=== PATIENT | male | born 1975 | race African-American/Black ===

== ENCOUNTER 2018-11-12 12:23 | Emergency (ER) | payer MEDICAID ==
[~2018-11-12] VITALS: Ht 175.3 cm; Wt 100.0 kg
--- NOTE | 2018-11-12 12:33 | NUR ---
Called for triage x2 no answer.
--- NOTE | 2018-11-12 12:41 | NUR ---
Third attempt to call for triage, no answer.
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
[2018-11-12 13:09] LABS: BASOPHILS # (AUTO) 0.05 x10^3/uL (0-0.1); BASOPHILS % (AUTO) 1 % (0-1); EOSINOPHILS # (AUTO) 0.11 x10^3/uL (0-0.4); EOSINOPHILS % (AUTO) 2 % (1-7); LYMPHOCYTES # (AUTO) 1.53 x10^3/uL (1-3.4); LYMPHOCYTES % (AUTO) 23 % (22-44); MD NO; MEAN CORPUSCULAR HEMOGLOBIN 31.5 pg (27.5-34.5); MEAN CORPUSCULAR HGB CONC 33.9 g/dL (33.2-36.2); MEAN CORPUSCULAR VOLUME 92.9 fL (81-97); MEAN PLATELET VOLUME 7.6 fL (7.4-10.4); MONOCYTES % (AUTO) 10 % (2-9); NEUTROPHILS # (AUTO) 4.37 x10^3/uL (1.8-6.8); NEUTROPHILS % (AUTO) 65 % (42-75); PLATELET COUNT 420 x10^3/uL (130-400); RED BLOOD COUNT 5.04 x10^6/uL (4.38-5.82); RED CELL DISTRIBUTION WIDTH 13.5 % (9.4-14.8)
[2018-11-12 13:19] LABS: ALBUMIN 3.5 g/dL (3.4-5.0); ANION GAP 7 mmol/L (5-15); CHLORIDE 107 mmol/L (98-107)
[2018-11-12 13:22] LABS: ALANINE AMINOTRANSFERASE 21 U/L (12-78); ALKALINE PHOSPHATASE 82 U/L (45-117); BILIRUBIN,TOTAL 0.3 mg/dL (0.2-1.0); TOTAL PROTEIN 7.7 g/dL (6.4-8.2)
[2018-11-12] MEDS ORDERED: OXYcodone/APAP 5/325MG TABLET ONE (13:47)
--- NOTE | 2018-11-12 13:50 | NUR ---
Pt medicated as per emar, labs complete. CT face pending.
[2018-11-12] MEDS ORDERED: OXYcodone/APAP 5/325MG TABLET PO ONE (14:00)
--- NOTE | 2018-11-12 14:09 | NUR ---
IV est, pt amb. to CT
--- NOTE | 2018-11-12 15:33 | NUR ---
DISCHARGE INSTRUCTIONS GIVEN WITH QUESTIONS ANSWERED REGARDING STAPH/MRSA. AMBULATED TO DISCHARGE DESK, STEADY GAIT
[2018-11-12 15:34] VITALS: BP 135/74
== END 2018-11-12 15:36 | disposition home or self-care (01) ==
LOC: ED 14:33
DX: S05.12XA Contusion of eyeball and orbital tissues, left eye, initial encounter (principal); L03.213 Periorbital cellulitis; V89.2XXA Person injured in unspecified motor-vehicle accident, traffic, initial encounter; Y93.89 Activity, other specified; Y92.89 Other specified places as the place of occurrence of the external cause; Y99.8 Other external cause status
CPT/HCPCS: 36415; 70487; 80053; 85025; 99284